=== PATIENT | female | born 1970 | race Asian ===

== ENCOUNTER → 2024-10-18 | Outpatient (CLI) | payer OTHER, SELFPAY ==
--- NOTE | 2024-10-18 12:35 | XR_ITS ---
EXAMINATION: Cervical spine, 5 views Technique: Cervical spine AP, AP odontoid, lateral, bilateral obliques, 5 views Exam date and time: October 18, 2024 1240 hrs. Indications: Neck pain beginning 3 months ago. Findings: Adequate alignment cervical vertebral bodies Moderate cervical spondylosis No cervical fracture No significant neural foraminal stenosis Intact odontoid Impression: No cervical fracture Moderate cervical spondylosis
--- NOTE | 2024-10-18 12:35 | XR_ITS ---
Examination: Thoracic spine 3 views Technique one AP lateral coned lateral upper dorsal spine 3 views Exam date and time: October 18, 2024 1215 hrs. Indications: Upper back pain beginning 3 months ago. Findings: Upper thoracic dextroscoliosis 8 degrees No thoracic fracture Moderate diffuse thoracic disc narrowing Moderate thoracic spondylosis Impression: Moderate diffuse thoracic degenerative disc disease
== END | disposition home or self-care (01) ==
LOC: SDIM 12:17
PROVIDERS: PCP Internal Medicine; Referring Provider Internal Medicine; Visit Provider Internal Medicine
DX: M47.812 Spondylosis without myelopathy or radiculopathy, cervical region (principal); M51.34 Other intervertebral disc degeneration, thoracic region
CPT/HCPCS: 72050; 72072

== ENCOUNTER → 2024-11-08 | Outpatient (CLI) | payer OTHER, SELFPAY ==
--- NOTE | 2024-11-08 08:30 | XR_ITS ---
Examination: Screening digital mammography, bilateral Computer aided detection 3-D breast Tomosynthesis, bilateral Date and time of exam: November 08, 2024 0834 hours No priors Indication: Screening Technique: Nonmagnified MLO, CC views of the breasts to been obtained, reconstructed from 3-D Tomosynthesis images. R2 computer aided detection program utilized for evaluation of suspicious masses and/or abnormal calcifications. 3-D Tomosynthesis images obtained. Findings: Scattered areas of fibroglandular density. Benign calcifications No suspicious masses Impression: BI-RADS category II: Benign Findings. Recommend 1 year follow-up mammogram.
== END | disposition home or self-care (01) ==
LOC: CDIM 08:24
PROVIDERS: Referring Provider Internal Medicine; Visit Provider Internal Medicine
DX: Z12.31 Encounter for screening mammogram for malignant neoplasm of breast (principal); R92.323 Mammographic fibroglandular density, bilateral breasts; R92.1 Mammographic calcification found on diagnostic imaging of breast
CPT/HCPCS: 77063; 77067

== ENCOUNTER → 2025-06-13 | Outpatient (CLI) | payer OTHER, SELFPAY ==
[2025-06-13 13:37] LABS: Collection Type, Urine Clean Catch
[2025-06-13 14:06] LABS: Basophils # (Auto) 0.0 Thou/mm3 (0.0-0.2); Basophils % (Auto) 0 % (0-2.5); Eosinophils # (Auto) 0.4 Thou/mm3 (0.0-0.5); Eosinophils % (Auto) 4 % (0-10); Hematocrit 49.2 % (36.0-46.0); Hemoglobin 16.5 g/dL (12.0-16.0); Immature Granulocytes Auto 0.04 Thou/mm3 (0.00-0.00); Lymphocytes # (Auto) 2.5 Thou/mm3 (1.0-4.8); Lymphocytes % (Auto) 25 % (10-50); Mean Corpuscular HGB Conc 33.5 g/dl (31.0-37.0); Mean Corpuscular Hemoglobin 30.1 pg (25.0-35.0); Mean Corpuscular Volume 90 fL (80-100); Monocytes # (Auto) 0.6 Thou/mm3 (0.0-0.8); Monocytes % (Auto) 6 % (0-12); Neutrophils # (Auto) 6.4 Thou/mm3 (1.8-7.7); Neutrophils % (Auto) 64 % (37-80); Nucleated Red Blood Cell # 0.00 Thou/mm3 (0.00-0.00); Nucleated Red Blood Cell % 0 /100 WBC (0); Platelet Count 283 Thou/mm3 (140-440); RDW Standard Deviation 38.0 fL (36.4-46.3); Red Blood Count 5.49 Miln/mm3 (4.00-5.20); White Blood Count 9.9 Thou/mm3 (3.6-11.0)
[2025-06-13 14:14] LABS: Bilirubin,Urine Negative (Negative); Blood,Urine Trace (Negative); Clarity,Urine Clear (Clear/Hazy); Color,Urine Lt-Yellow (Lt Yel-Yel); Glucose, Urine 4+ (Negative); Ketones,Urine Negative (Negative); Leukocyte Esterase,Urine Positive (Negative); Nitrite,Urine Negative (Negative); PH,Urine 6.0 (5.0-7.0); Protein,Urine 2+ (Neg - Trace); RBC,Urine 2 /hpf (0-3); Specific Gravity,Urine 1.026 (1.001-1.035); Squamous Epithelial Cell,Urine 4 /hpf (0-5); Urobilinogen,Urine Negative mg/dL (0.0-1.0); WBC,Urine 12 /hpf (0-5)
[2025-06-13 14:15] LABS: Culture Indicated,Urine Yes
[2025-06-13 14:27] LABS: Alanine Aminotransferase 45 U/L (10-49); Albumin, Serum 5.1 gm/dL (3.5-5.0); Albumin/Globulin Ratio 1.8 (1.2-2.2); Alkaline Phosphatase 73 U/L (46-116); Anion Gap 11 (7-16); Aspartate Amino Transferase 48 U/L (0-34); BUN/Creatinine Ratio 15 Ratio (12-20); Bilirubin,Total 0.6 mg/dL (0.3-1.2); Blood Urea Nitrogen 15 mg/dL (9-23); Calcium 9.7 mg/dL (8.3-10.6); Calcium (Corrected) 9.7 mg/dL (8.5-10.1); Carbon Dioxide 26.7 mMol/L (20.0-31.0); Cardiac Risk Estimate 2.9 RATIO (3.7-5.6); Chloride 103 mMol/L (98-107); Cholesterol 114 mg/dL (132-200); Creatinine (Component) 1.0 mg/dL (0.6-1.3); Free T4 (Free Thyroxine) 1.30 ng/dL (0.89-1.76); Globulin 2.8 gm/dL (2.3-3.5); Glucose 123 mg/dL (74-106); HDL Cholesterol 39 mg/dL (40-60); LDL Cholesterol,Calculated 56 mg/dL (0-130); Osmolality,Calculated 283 (275-295); Potassium 4.2 mMol/L (3.4-5.1); Sodium 141 mMol/L (136-145); Thyroid Stimulating Hormone 2.03 uIU/mL (0.55-4.78); Total Protein 7.9 gm/dL (5.7-8.2); Triglycerides 93 mg/dL (30-150); eGFR > 60 See Note
[2025-06-13 14:28] LABS: Glucose Estimated Average 203 mg/dL (80-131); Hemoglobin A1C 8.7 % Hgb (4.8-6.0)
[2025-06-13 14:38] LABS: Creatinine MALB Rnd Ur 74 mg/dL (30-125)
[2025-06-13 15:19] LABS: Microalbumin Creat Ratio 1041 mg/gCrea (<30); Microalbumin, Random Urine 770 mg/L (0-300)
== END | disposition home or self-care (01) ==
LOC: COPL 12:55
PROVIDERS: PCP Internal Medicine; Referring Provider Internal Medicine; Visit Provider Internal Medicine
DX: I10 Essential (primary) hypertension (principal); E11.65 Type 2 diabetes mellitus with hyperglycemia
CPT/HCPCS: 36415; 80053; 80061; 81001; 82043; 82570; 83036; 84439; 84443; 85025; 87086

== ENCOUNTER → 2025-08-06 | Outpatient (CLI) | payer OTHER, SELFPAY ==
--- NOTE | 2025-08-06 15:00 | XR_ITS ---
Examination: Abdomen sonogram, complete Date and time of exam: August 06, 2025, 1454 hours INDICATIONS: Elevated liver function tests on laboratory examination June 13, 2025. Technique: Multiple real-time grayscale transabdominal sonographic images of the abdomen have been obtained. Findings: Multiple gallstones Gallbladder wall 0.36 no edema Common bile duct 0.2 cm Pancreatic head 1.5 cm Aorta not enlarged Liver 16.9 cm fatty infiltration Normal hepatopetal portal venous Patent IVC Right kidney 9.9 cm cortex 1.5 cm 6 mm upper pole 9 mm mid pole right renal calculi, no hydronephrosis Left kidney 10.7 cm cortex 1.9 cm Spleen 8.7 cm IMPRESSION: Cholelithiasis, borderline thickening gallbladder wall, clinical correlation advised Nonobstructing right renal calculi
== END | disposition home or self-care (01) ==
LOC: CDIM 14:38
PROVIDERS: Referring Provider Internal Medicine; Visit Provider Internal Medicine
DX: K80.20 Calculus of gallbladder without cholecystitis without obstruction (principal); N20.0 Calculus of kidney
CPT/HCPCS: 76700